=== PATIENT | male | born 2000 | race Two or more races ===

== ENCOUNTER 2021-05-30 22:41 | Emergency (ER) | payer OTHER ==
[~2021-05-30] VITALS: Ht 180.3 cm; Wt 100.0 kg
--- NOTE | 2021-05-30 23:45 | PHYS DOC ---
Adult General Chief Complaint Chief Complaint: ALCOHOL INTOXICATION HPI HPI Patient is an otherwise healthy 20-year-old male in the who presents to the emergency department after his first time drinking alcohol with some nausea. States he is never drank alcohol before, had 4 beers earlier and started to feel nauseous. Denies any other alcohol or drug use. States while in the emergency department he is actually starting to feel better and was able to drink some Dr. Pepper p.o. without issue. Denies any other illnesses, fevers, chest pain, shortness of breath, abdominal pain. Review of Systems Review of Systems Review of systems otherwise unremarkable except noted in HPI Physical Exam Physical Exam Constitutional: Well developed, well nourished, no acute distress, non-toxic appearance. [] HENT: Normocephalic, atraumatic, bilateral external ears normal, oropharynx moist, no oral exudates, nose normal. [] Eyes: PERRLA, EOMI, conjunctiva normal, no discharge. [] Neck: Normal range of motion, no tenderness, supple, no stridor. [] Cardiovascular:Heart rate regular rhythm, no murmur [] Lungs & Thorax: Bilateral breath sounds clear to auscultation [] Abdomen: soft, no tenderness, no masses, no pulsatile masses. [] Skin: Warm, dry, no erythema, no rash. [] Back: No tenderness, no CVA tenderness. [] Extremities: No tenderness, no cyanosis, no clubbing, ROM intact, no edema. [] Neurologic: Alert and oriented X 3, normal motor function, normal sensory function, able to sit, stand and walk without issue no focal deficits noted. [] Psychologic: Affect normal, judgement normal, mood normal. [] EKG EKG [] Radiology/Procedures Radiology/Procedures [] Heart Score C/O Chest Pain: No Risk Factors: Risk Factors: DM, Current or recent (<one month) smoker, HTN, HLP, family history of CAD, obesity. Risk Scores: Risk Factors: DM, Current or recent (<one month) smoker, HTN, HLP, family history of CAD, obesity. Course & Med Decision Making Course & Med Decision Making Patient is a 20-year-old male who presents after drinking alcohol for the first time with nausea Vital signs not concerning. Physical exam noted above. Given Zofran. Patient able to drink p.o. Dr. Pepper. States he is feeling better and is ready to be discharged home. Given work note for tomorrow. Advised to follow-up in the morning with primary care physician. Gave return precautions to the ED. Patient grateful, verbalized understanding and agreed with plan of discharge. [] Dragon Disclaimer Dragon Disclaimer This electronic medical record was generated, in whole or in part, using a voice recognition dictation system. Departure Departure: Impression: Primary Impression: Alcohol intoxication Disposition: 01 HOME / SELF CARE / HOMELESS Condition: GOOD Referrals: ABRAM MCRAE DO (PCP) Patient Instructions: Alcohol Intoxication Additional Instructions: Thank you for coming into the emergency department today and allowing us to take care of you. Please read the attached information carefully to go back over some of the things we discussed. Please be sure to stay well-hydrated, and cease excessive use of alcohol to avoid these symptoms. Please follow-up with your primary care as needed. Please come back with new or concerning symptoms as discussed. JOY REEVES MD May 30, 2021 23:45
[2021-05-30 23:48] VITALS: BP 134/92
[2021-05-31] MEDS ORDERED: ONDANSETRON 4MG ODT 4TABLET STARTPACK. PO ONE
== END 2021-05-30 23:55 | disposition home or self-care (01) ==
LOC: ER 22:41
DX: F10.129 Alcohol abuse with intoxication, unspecified (principal); Y90.9 Presence of alcohol in blood, level not specified
CPT/HCPCS: 99283